=== PATIENT | male | born 1965 | race Caucasian/White ===

== ENCOUNTER 2018-02-23 15:28 | Emergency (ER) | payer OTHER ==
[~2018-02-23 15:28] MED LIST: PRED1DRO LEFTEYE
[2018-02-23 15:30] VITALS: BP 155/102
[2018-02-23] MEDS ORDERED: acetaminophen 325mg tablet PO ONE (16:50)
[2018-02-23] MEDS ORDERED: TETanus/Pertussis (Acell)/Diphther VAC/PF (Tdap-Adult) 0.5ml syringe IM ONE (16:50)
== END 2018-02-23 17:25 | disposition home or self-care (01) ==
LOC: ER 15:29
DX: S86.911A Strain of unspecified muscle(s) and tendon(s) at lower leg level, right leg, initial encounter (principal); S40.011A Contusion of right shoulder, initial encounter; W18.09XA Striking against other object with subsequent fall, initial encounter; Y93.89 Activity, other specified; Y92.89 Other specified places as the place of occurrence of the external cause; Y99.8 Other external cause status
CPT/HCPCS: 73564; 90471; 90715; 99284